=== PATIENT | female | born 1965 | race Caucasian/White ===

== ENCOUNTER 2016-03-19 11:29 | Emergency (ER) | payer OTHER ==
[~2016-03-19] VITALS: Ht 167.6 cm; Wt 62.0 kg
[2016-03-19 11:31] VITALS: BP 129/77; PULSE 82; RESP 20; TEMP 98; O2SAT 98
[2016-03-19] MEDS ORDERED: IBUP800T23 PO (11:50)
[2016-03-19] MEDS ORDERED: CEPH-460 PO (11:50)
[2016-03-19] MEDS ORDERED: BACT800T5 PO (11:50)
--- NOTE | 2016-03-19 11:50 | PD ---
HPI Chief Complaint: Skin Problem Time Seen by Provider: 11:48 Travel History International Travel<30 days: No Contact w/Intl Traveler<30days: No Traveled to known affect area: No History of Present Illness HPI 50-year-old female presents to the emergency Department with complaint of a red , painful, hot, and itchy area to her left arm that started today.. She thinks she got bit by a bug. The area has gotten bigger. 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 The area has been wiped with alcohol. She has not taken any medications or tried any other treatments to be her symptoms. Denies fever, chills, nausea, vomiting. Denies paresthesias, loss of sensation, decreased range of motion, decreased strength to the affected extremity. Denies allergies. Denies significant past medical history. History of cochlear implants and hard of hearing. No other modifying factors or associated signs and symptoms. PFSH Past Medical History Medical History: Denies Significant Hx Diminished Hearing: Yes Past Surgical History Tympanostomy Tube: Yes Social History Alcohol Use: Yes Tobacco Use: No Substance Use: No Allergies-Medications (Allergen,Severity, Reaction): Coded Allergies: No Known Allergies (Unverified , 03/19/16) Reported Meds & Prescriptions Reported Meds & Active Scripts Active Ibuprofen 800 Mg Tab 800 Mg PO Q6HR PRN Bactrim DS (Sulfamethoxazole-Trimethoprim) 800-160 Mg Tab 1 Tab PO BID 10 Days Keflex (Cephalexin) 500 Mg Cap 500 Mg PO Q6H 10 Days Review of Systems Except as stated in HPI: all other systems reviewed are Neg Physical Exam Narrative GENERAL: Well-nourished, well-developed female patient, in no acute distress; afebrile, nontoxic-appearing SKIN: Warm and dry. Large area of erythema and warmth to touch to the left medial forearm area consistent with cellulitis. Left Upper extremity supple and non-tense; was 2+ radial pulse and sensory intact; with full range of motion and strength. HEAD: Atraumatic. Normocephalic. EYES: Pupils equal and round. No scleral icterus. No injection or drainage. ENT: Mucosa pink and moist. Airway patent. NECK: Trachea midline. CARDIOVASCULAR: Regular rate. RESPIRATORY: No accessory muscle use. GASTROINTESTINAL: Flat. MUSCULOSKELETAL: No obvious deformities. No clubbing. No cyanosis. No edema. NEUROLOGICAL: Awake and alert. Oriented 3. No obvious cranial nerve deficits. Motor grossly within normal limits. Normal speech. PSYCHIATRIC: Appropriate mood and affect; insight and judgment normal. Data Data Last Documented VS Vital Signs Date Time Temp Pulse Resp B/P Pulse Ox O2 Delivery O2 Flow Rate FiO2 03/19/16 11:31 98.0 82 20 129/77 98 Room Air Orders Diphenhydramine (Benadryl) (03/19/16 12:00) Ibuprofen (Motrin) (03/19/16 12:00) MDM Medical Decision Making Medical Screen Exam Complete: Yes Emergency Medical Condition: Yes Medical Record Reviewed: Yes Differential Diagnosis Cellulitis, folliculitis, abscess Narrative Course 50-year-old female physical exam consistent with left arm cellulitis. Patient is afebrile and nontoxic-appearing. The left approximate is supple and non- tense with 2+ radial pulse and sensory intact. She reports area is itchy and painful. Benadryl and ibuprofen administered in the ER. Area marked with a surgical marker. Keflex, Bactrim, ibuprofen prescribed for home. Patient is medically cleared and stable for discharge. Discussed reasons to return to the emergency department. Instructed patient to follow up with primary care provider. Patient agrees with treatment plan. The patients vital signs are stable and the patient is stable for outpatient follow-up and treatment. Patient discharged home, stable and in no acute distress. Diagnosis Primary Impression: Cellulitis of left arm Referrals: Primary Care Physician Patient Instructions: Cellulitis (ED), General Instructions Departure Forms: Tests/Procedures, Work Release Enter return to work date: Mar 23, 2016 Additional Instructions: Complete full course of antibiotics Warm or cool compresses to the affected area Keep area clean and dry Ibuprofen or Tylenol as directed and as needed for pain and inflammation Follow-up with primary care provider Return to emergency department immediately with worsening of symptoms Med/Other Pt SpecificInfo: Prescription(s) given Scripts Ibuprofen 800 Mg [id number] Mg PO Q6HR PRN (PAIN) #30 TAB Ref 0 Prov:Charito AugustinP 03/19/16 Sulfamethoxazole-Trimethoprim (Bactrim DS)800-160 Mg Tab1 Tab PO BID 10 Days Ref 0 Prov:Charito Augustin 03/19/16 Cephalexin (Keflex)500 Mg [id number] Mg PO Q6H 10 Days Ref 0 Prov:Charito Augustin 03/19/16 Disposition: 01 DISCHARGE HOME Condition: Stable Charito Augustin Mar 19, 2016 11:50
[2016-03-19] MEDS ORDERED: IBUPROFEN 800 MG TAB PO ONE (12:00)
[2016-03-19] MEDS ORDERED: diphenhydrAMINE HCL 50 MG CAP PO ONE (12:00)
== END 2016-03-19 12:11 | disposition home or self-care (01) ==
LOC: NEPB 11:29
DX: L03.114 Cellulitis of left upper limb (principal); H91.90 Unspecified hearing loss, unspecified ear
CPT/HCPCS: 99283; Q0163

== ENCOUNTER 2017-03-24 13:51 | Emergency (ER) | payer OTHER ==
[~2017-03-24] VITALS: Ht 167.6 cm; Wt 65.4 kg
[~2017-03-24 13:51] MED LIST: BACT800T5 PO; CEPH-460 PO; IBUP1TAB7 PO
[2017-03-24 14:03] VITALS: BP 126/68; PULSE 78; RESP 16; TEMP 98.3; O2SAT 99
[2017-03-24] MEDS ORDERED: IBUP1TAB7 PO (14:52)
[2017-03-24] MEDS ORDERED: ROBA500T PO (14:52)
--- NOTE | 2017-03-24 14:56 | PD ---
HPI Chief Complaint: Back/ Neck Pain or Injury Time Seen by Provider: 14:27 Travel History International Travel<30 days: No Contact w/Intl Traveler<30days: No Traveled to known affect area: No History of Present Illness HPI This is a 51-year-old female here with nontraumatic low back pain times one day. Patient reports her symptoms in the past. She denies fever, chills, incontinence, saddle anesthesia, paresthesia or weakness of the extremity is. Is worse with movement and slightly relieved with rest. Severity is moderate. PFSH Past Medical History Diminished Hearing: Yes (READS LIPS/COCHLEAR IMPLANT.) ?: Not LMP: 03/12/17 Past Surgical History Ear Surgery: Yes (COCHLEAR IMPLANT) Tympanostomy Tube: Yes Social History Alcohol Use: No Tobacco Use: No Substance Use: No Allergies-Medications (Allergen,Severity, Reaction): Coded Allergies: No Known Allergies (Unverified , 03/19/16) Reported Meds & Prescriptions Reported Meds & Active Scripts Active No Active Prescriptions or Reported Medications Review of Systems Except as stated in HPI: all other systems reviewed are Neg General / Constitutional: No: Fever Eyes: No: Visual changes HENT: No: Headaches Cardiovascular: No: Chest Pain or Discomfort Respiratory: No: Shortness of Breath Gastrointestinal: No: Abdominal Pain Genitourinary: No: Dysuria Physical Exam Narrative GENERAL: Alert and well-appearing 51-year-old female SKIN: Warm and dry. HEAD: Normocephalic. EYES: No injection or drainage. NECK: Supple CARDIOVASCULAR: Regular rate and rhythm RESPIRATORY: Breath sounds equal bilaterally. No accessory muscle use. GASTROINTESTINAL: Abdomen soft, non-tender, nondistended. MUSCULOSKELETAL: No cyanosis, or edema. Normal strength and sensation in lower extremities. 2+ patellar and Achilles DTR. Patient is able to dorsiflex and plantar flex the great toe. BACK: Mild tenderness to bilateral lumbar paraspinous musculature. Without obvious deformity. No CVA tenderness. [facility] Medical Decision Making Medical Screen Exam Complete: Yes Emergency Medical Condition: Yes Differential Diagnosis Lumbar strain, herniated disc, sciatica Narrative Course 31-year-old female here with nontraumatic low back pain. She's had similar episodes in the past. She has a normal neurologic exam. No midline spine tenderness. She'll be treated for lumbar strain Diagnosis Primary Impression: Lumbar strain Qualified Codes: S39.012A - Strain of muscle, fascia and tendon of lower back , initial encounter Referrals: Primary Care Physician Additional Instructions: Disposition as prescribed. Of rehabilitation or strenuous activity. Ice and/or heat for comfort Scripts Methocarbamol (Robaxin) 500 Mg Tab 500 MG PO TID for Muscle Spasm, #12 TAB 0 Refills Prov: Deepti Alvarado 03/24/17 Ibuprofen (Ibuprofen) 800 Mg Tab 800 MG PO Q6HR Y for PAIN, #40 TAB 0 Refills Prov: Deepti Alvarado 03/24/17 Disposition: 01 DISCHARGE HOME Condition: Stable Deepti Alvarado Mar 24, 2017 14:56
== END 2017-03-24 15:36 | disposition home or self-care (01) ==
LOC: PHEFT 13:51
DX: S39.012A Strain of muscle, fascia and tendon of lower back, initial encounter (principal); X58.XXXA Exposure to other specified factors, initial encounter
CPT/HCPCS: 99283